=== PATIENT | female | born 1995 | race Caucasian/White ===

== ENCOUNTER 2023-01-23 13:53 | Emergency (ER) | payer BC ==
[2023-01-23] MEDS ORDERED: Acetaminophen 500 MG TAB ONE (14:30)
[2023-01-23] MEDS ORDERED: Metoclopramide HCl 10 MG/2 ML VIAL ONE (14:30)
[2023-01-23] MEDS ORDERED: diphenhydrAMINE 50 MG/ML VIAL ONE (14:30)
[2023-01-23] MEDS ORDERED: Magnesium 2 GM/50 ML BAG (IN WATER) ONE (17:32)
[2023-01-23] MEDS ORDERED: methylPREDNISolone Sod Succ/PF 125 MG/2 ML VIAL ONE (17:32)
== END 2023-01-23 18:07 | disposition left against medical advice (07) ==
LOC: ERS 13:53
DX: R51.9 Headache, unspecified (principal); F17.210 Nicotine dependence, cigarettes, uncomplicated
CPT/HCPCS: 96365; 96366; 96375; J1200; J2765; J2930; J3475